=== PATIENT | male | born 1955 | race Caucasian/White ===

== ENCOUNTER 2019-10-03 14:57 | Emergency (ER) | payer OTHER ==
[~2019-10-03] VITALS: Ht 190.5 cm; Wt 104.5 kg
--- NOTE | 2019-10-03 15:49 | PHYS DOC ---
Past Medical History Past Medical History: Diabetes-Type II, High Cholesterol, Hypertension Past Surgical History: Other Additional Past Surgical Histo: RT ROTATOR CUFF Smoking Status: Never Smoker Alcohol Use: None General Adult EDM: Chief Complaint: GENERALIZED BODY ACHES HPI: HPI: The history was obtained from the patient. Patient is a 64-year-old male with PMH sop-cuhxdxh-cyatjrsum diabetes, hypertension, hyperlipidemia who presents with a chief complaint of generalized also aches. Patient states on September 18 he began having generalized muscle aches. He states he was tested as an outpatient for yoder virus. He states he was told that he was negative. He states since then he has had intermittent generalized muscle aches. He states it involves his neck and all of his extremities. 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 Denies any known exposure to coronavirus. Denies any fevers. He denies any chest pain or shortness of breath. He denies any cough or sore throat. He denies abdominal pain. Denies any urinary symptoms including dysuria or polyuria. He states that he does take metformin daily. He states he has not checked his blood sugar approximately a month. He has noted that he takes 40 mg of Lipitor daily. He states he has been on this dose for years and there are no recent changes to that dose. He denies any syncope. He denies any feelings of irregular rapid heartbeats. He states that he does have a family physician who encouraged him to report to emergency department. He states that he has been looking up the symptoms online and is particular concern regarding fibromyalgia or lupus. Denies any rashes. He states he has not been overexerting himself at work. He denies any symptoms outside of his generalized muscle aches. No other complaints. Review of Systems: Review of Systems: Constitutional: Denies fever or chills. [] Eyes: Denies change in visual acuity. [] HENT: Denies nasal congestion or sore throat. [] Respiratory: Denies cough or shortness of breath. [] Cardiovascular: Denies chest pain or edema. [] GI: Denies abdominal pain, nausea, vomiting, bloody stools or diarrhea. [] : Denies dysuria. [] Musculoskeletal: Positive for muscle aches Integument: Denies rash. [] Neurologic: Denies headache, focal weakness or sensory changes. [] Endocrine: Denies polyuria or polydipsia. [] Lymphatic: Denies swollen glands. [] Psychiatric: Denies depression or anxiety. [] Heart Score: Risk Factors: Risk Factors: DM, Current or recent (<one month) smoker, HTN, HLP, family history of CAD, obesity. Risk Scores: Score 0 - 3: 2.5% MACE over next 6 weeks - Discharge Home Score 4 - 6: 20.3% MACE over next 6 weeks - Admit for Clinical Observation Score 7 - 10: 72.7% MACE over next 6 weeks - Early Invasive Strategies Physical Exam: PE: Constitutional: Well developed, well nourished, no acute distress, non-toxic appearance. [] HENT: Normocephalic, atraumatic, bilateral external ears normal, oropharynx moist, no oral exudates, nose normal. [] Eyes: PERRLA, EOMI, conjunctiva normal, no discharge. [] Neck: Normal range of motion, no tenderness, supple, no stridor. [] Cardiovascular:Heart rate regular rhythm, no murmur [] Lungs & Thorax: Bilateral breath sounds clear to auscultation [] Abdomen: soft, no tenderness, no masses, no pulsatile masses. [] Skin: Warm, dry, no erythema, no rash. [] Back: No tenderness, no CVA tenderness. [] Extremities: No tenderness, no cyanosis, no clubbing, ROM intact, no edema. [] Neurologic: Alert and oriented X 3, normal motor function, normal sensory function, no focal deficits noted. [] Psychologic: Affect normal, judgement normal, mood normal. [] Current Patient Data: Labs: Laboratory Tests Test 10/03/19 15:50 White Blood Count 9.1 x10^3/uL Red Blood Count 4.25 x10^6/uL Hemoglobin 13.8 g/dL Hematocrit 40.5 % Mean Corpuscular Volume 95 fL Mean Corpuscular Hemoglobin 33 pg Mean Corpuscular Hemoglobin Concent 34 g/dL Red Cell Distribution Width 13.7 % Platelet Count 308 x10^3/uL Neutrophils (%) (Auto) 64 % Lymphocytes (%) (Auto) 24 % Monocytes (%) (Auto) 11 % Eosinophils (%) (Auto) 1 % Basophils (%) (Auto) 1 % Neutrophils # (Auto) 5.8 x10^3/uL Lymphocytes # (Auto) 2.2 x10^3/uL Monocytes # (Auto) 1.0 x10^3/uL Eosinophils # (Auto) 0.1 x10^3/uL Basophils # (Auto) 0.1 x10^3/uL Sodium Level 135 mmol/L Potassium Level 4.3 mmol/L Chloride Level 99 mmol/L Carbon Dioxide Level 28 mmol/L Anion Gap 8 Blood Urea Nitrogen 24 mg/dL Creatinine 1.2 mg/dL Estimated GFR (Cockcroft-Gault) 61.0 Glucose Level 253 mg/dL Calcium Level 9.8 mg/dL Creatine Kinase 38 U/L Vital Signs: Vital Signs Date Time Temp Pulse Resp B/P (MAP) Pulse Ox O2 Delivery O2 Flow Rate FiO2 10/03/19 15:21 97.8 98 16 142/76 (98) Room Air 97.8 EKG: EKG: EKG consistent with normal sinus rhythm. Ventricular rate of 85 bpm. Left axis noted. Intervals normal. No acute ischemic changes appreciated. No previous for comparison. Radiology/Procedures: Radiology/Procedures: [][facility] [address] [place] [address] IMAGING REPORT Signed PATIENT: SONJA VILLARREAL ACCOUNT: [id number] : 1955 LOCATION: ER AGE: 64 SEX: M EXAM STATUS: REG ER ORD. PHYSICIAN: GINGER GONG DO REASON: generalized weakness PROCEDURE: CHEST PA & LATERAL Exam: Chest 2 views INDICATION: Generalized weakness TECHNIQUE: Frontal and lateral views the chest Comparisons: None FINDINGS: The cardiomediastinal silhouette and pulmonary vessels are within normal limits. The lung and pleural spaces are clear. IMPRESSION: No acute cardiopulmonary process. Electronically signed by: Rebekah Olson MD (10/03/2019 4:06 PM) [id number] DICTATED and SIGNED BY: REBEKAH OLSON MD DATE: 10/03/19 1606 Course & Med Decision Making: Course & Med Decision Making Pertinent Labs and Imaging studies reviewed. (See chart for details) Patient is a well-appearing 64-year-old male who presents with chief complaint of intermittent diffuse body aches over the past few weeks. There is vital signs unremarkable. Overall I do have low suspicion for ACS. Initial EKG shows no acute ischemic changes. Basic labs were obtained and were grossly unremarkable. CPK without abnormality. Patient is declining repeat coronavirus testing today. He was instructed to self quarantine given his symptoms. Overall suspicion for emergent etiology explaining patient's symptoms. This could be related to statin induced myopathy. I do feel the patient's appropriate for outpatient management. He was instructed to follow-up with his primary care physician in the next 2 to 3 days. Patient is agreeable to this plan. Repeat vital signs been stable. Return precautions discussed and understood. Stable for discharge home. Dragon Disclaimer: Dragon Disclaimer: This electronic medical record was generated, in whole or in part, using a voice recognition dictation system. Departure Departure Disposition: 01 HOME, SELF-CARE Condition: GOOD Referrals: WILLIAN JAY MD (PCP) Patient Instructions: Muscle Cramps Additional Instructions: Please follow-up with your PCP in the next 2 to 3 days. Scripts Cyclobenzaprine Hcl (CYCLOBENZAPRINE HCL) 5 Mg Tablet 5 MG PO PRN TID PRN for MUSCLE PAIN, #15 TAB Prov: GINGER GONG DO 10/03/19 Justicifation of Admission Dx: Justifications for Admission: Justification of Admission Dx: N/A GINGER GONG DO Oct 03, 2019 15:49
[2019-10-03 16:08] LABS: CALCIUM 9.8 mg/dL (8.5-10.1); CREATININE 1.2 mg/dL (0.7-1.3); POTASSIUM 4.3 mmol/L (3.5-5.1)
--- NOTE | 2019-10-03 16:09 | RAD ---
Exam: Chest 2 views INDICATION: Generalized weakness TECHNIQUE: Frontal and lateral views the chest Comparisons: None FINDINGS: The cardiomediastinal silhouette and pulmonary vessels are within normal limits. The lung and pleural spaces are clear. IMPRESSION: No acute cardiopulmonary process. Electronically signed by: Rebekah Romero MD (10/03/2019 4:06 PM) [id number]
[2019-10-03 16:17] LABS: BASO # 0.1 x10^3/uL (0.0-0.2); BASO % 1 % (0-3); EOS # 0.1 x10^3/uL (0.0-0.7); EOS % 1 % (0-3); HEMATOCRIT 40.5 % (39.0-53.0); HEMOGLOBIN 13.8 g/dL (13.0-17.5); LYMPH # 2.2 x10^3/uL (1.0-4.8); LYMPH % 24 % (24-48); MEAN CORPUSCULAR HEMOGLOBIN 33 pg (25-35); MEAN CORPUSCULAR HGB CONC 34 g/dL (31-37); MEAN CORPUSCULAR VOLUME 95 fL (79-100); MONO % 11 % (0-9); NEUT # 5.8 x10^3/uL (1.8-7.7); NEUT % 64 % (31-73); PLATELET COUNT 308 x10^3/uL (140-400); RED BLOOD COUNT 4.25 x10^6/uL (4.30-5.70); RED CELL DISTRIBUTION WIDTH 13.7 % (11.5-14.5); WHITE BLOOD COUNT 9.1 x10^3/uL (4.0-11.0)
[2019-10-03 17:06] VITALS: BP 149/75
[2019-10-03] MEDS ORDERED: CYCL5TAB PO (17:28)
--- NOTE | 2019-10-04 03:04 | EKG ---
[facility] [address] [place] [address] Test Date: 2019-10-03 Test Time: 16:28:07 Pat Name: SONJA VILLARREAL Department: Room: Gender: M Certified Paralegal: : 1955 Requested By: GINGER GONG Order Number: [id number] Reading MD: Measurements Intervals [place] Rate: 85 P: 30 [place]: 200 QRS: -6 QRSD: 88 T: 38 QT: 344 QTc: 414 Interpretive Statements SINUS RHYTHM LEFTWARD AXIS OTHERWISE NORMAL ECG RI6.01 No previous ECG available for comparison
== END 2019-10-03 17:51 | disposition home or self-care (01) ==
LOC: ER 14:57
DX: R53.1 Weakness (principal); R52 Pain, unspecified; E11.9 Type 2 diabetes mellitus without complications; E78.00 Pure hypercholesterolemia, unspecified; I10 Essential (primary) hypertension; Z98.890 Other specified postprocedural states
CPT/HCPCS: 36415; 71046; 80048; 82550; 85025; 93005; 99285

== ENCOUNTER 2021-06-21 06:06 | Day surgery (SDC) | payer MEDICARE ==
[~2021-06-21] VITALS: Ht 188 cm; Wt 131.0 kg
[~2021-06-21 06:06] MED LIST: ALBU2.5V8 INH; ALLO300T PO; ATOR40TA59 PO; CANA100T PO; CETI10TA74 PO; CHOL5000 PO; CYCL5TAB PO; DICL75TA PO; FLUT9.9S NS; HYDR-2145 PO; HYDR12.575 PO; HYDROmorphone 2 MG/ML INJ. IVP PRN; IV RINGERS,LACTATED 1000ML 1,000 ML IV SCH; METF10007 PO; MORPHINE SULFATE 2 MG/ML INJ. IVP PRN; PIOG30TA41 PO; POTA10TA12 PO; PROCHLORPERAZINE 10 MG/2 ML VIAL. IVP PRN; SEMA1PEN3 SQ; ceFAZolin SODIUM 3 GM in IV DEXTROSE 5% 100ML 100 ML IV PRN; fentaNYL PF VIAL 100 MCG/2 ML VIAL IVP PRN
[2021-06-21 06:38] VITALS: BP 114/61
[2021-06-21] MEDS ORDERED: PROPOFOL 10 MG/ML (20ML) VIAL. IV ONE (06:43)
[2021-06-21] MEDS ORDERED: SUCCINYLCHOLINE 200 MG/10 ML VIAL. ONE (06:50)
[2021-06-21] MEDS ORDERED: fentaNYL PF VIAL 100 MCG/2 ML VIAL ONE (06:52)
[2021-06-21] MEDS ORDERED: INSULIN LISPRO 100 UNIT/ML 3ML VIAL for OP,RR ONLY. SQ PRN (07:00)
[2021-06-21] MEDS ORDERED: BUPIVACAINE MPF 0.25% 30 ML VIAL. ONE (07:01)
[2021-06-21] MEDS ORDERED: INSULIN LISPRO 100 UNIT/ML 3ML VIAL for OP,RR ONLY. SQ ONE (07:05)
[2021-06-21] MEDS ORDERED: ONDANSETRON PF 4 MG/2 ML VIAL. ONE (07:46)
[2021-06-21] MEDS ORDERED: DEXAMETHASONE SOD PHOS 4 MG/ML VIAL ONE (07:46)
--- NOTE | 2021-06-21 08:01 | PDOC4 ---
OPERATIVE NOTE Date: Date: Jun 21, 2021 Pre-Op Diagnosis: Dupuytren's contracture left palm trigger fingers left ring finger left middle finger Post-Op Diagnosis: Same Procedure Performed: Partial palmar fasciectomy left with trigger finger release left ring finger left middle finger Surgeon: Petr Anesthesia Type: General Blood Loss: 5 cc Specimans Obtained: Palmar fascia left Findings: See dictation Complications: None RAGHAV RITTER Jr. DO Jun 21, 2021 08:01
[2021-06-21] MEDS ORDERED: TRAM50TA PO (08:03)
--- NOTE | 2021-06-21 08:06 | DISCH ---
DISCHARGE INSTRUCTIONS Condition on Discharge Condition on Discharge: Stable Activity After Discharge Activity Instructions for Disc: Avoid exertion Bathing Instructions: Shower-keep dressing dry Lifting Instructions after Dis: No pulling or pushing Driving Instructions after Dis: Do not drive today Wound Incision Care Wound/Incision Care: Ice to area for comfort, Keep wound elevated, Change dressing Other wound/incision instructi: May change dressings postoperative day #3 Follow-Up Follow up with: 10 to 14 days RAGHAV RITTER Jr. DO Jun 21, 2021 08:05
--- NOTE | 2021-06-21 08:13 | OP ---
DATE OF SURGERY: 06/21/2021 PREOPERATIVE DIAGNOSIS: Dupuytren's contracture with trigger finger, left middle and left ring fingers. POSTOPERATIVE DIAGNOSIS: Dupuytren's contracture with trigger finger, left middle and left ring fingers. PROCEDURE: Partial palmar fasciectomy with release A1 kory, left ring finger and left middle finger. SURGEON: Malcolm Humphreys Jr, DO REAL ESTATE OFFICE MANAGER: Jim Parker. ANESTHESIA: General. COMPLICATIONS: None. ESTIMATED BLOOD LOSS: 5 mL DESCRIPTION OF PROCEDURE: The patient was taken to the operative suite, given a general anesthetic. Left upper extremity was then prepped and draped in sterile fashion. After exsanguination, tourniquet was inflated. An incision was made directly over the area of the palmar fascial defect in regard to the contracture of the palmar fascia. The band was easily identified. This was dissected out and the underlying tendons and neurovascular structures looked completely intact at this point and that portion of the palmar fascia was removed in its entirety. A1 kory was then identified and released. Tendons underlying were noted to be intact and completely released at this point. Therefore, this was thoroughly irrigated. Bovie knife was used on the undersurface flap, especially radial. This was reapproximated in an interrupted fashion using 3-0 nylon. Incision was made through skin and subcutaneous tissues directly over the area of the A1 kory of the ring finger. Following this, this was taken down to identify the A1 kory. This was fully released and the tendons again were inspected and noted to be completely intact without any problems. This was then irrigated. Wounds were reapproximated in an interrupted fashion. Sterile dressing was applied. The patient was then taken from the operative bed to the postoperative bed, taken to PACU in stable condition. NEVIN DR: Avelina TID: [id number]
[2021-06-21] MEDS ORDERED: traMADol 50 MG TABLET PO ONE (08:30)
[2021-06-21 08:45] VITALS: BP 117/67
== END 2021-06-21 09:12 | disposition home or self-care (01) ==
LOC: SURG 06:06
PROVIDERS: ATTEND Orthopaedic Surgery
DX: M72.0 Palmar fascial fibromatosis [Dupuytren] (principal); M65.332 Trigger finger, left middle finger; M65.342 Trigger finger, left ring finger; E11.9 Type 2 diabetes mellitus without complications; I10 Essential (primary) hypertension; G47.30 Sleep apnea, unspecified; M10.9 Gout, unspecified; Z79.84 Long term (current) use of oral hypoglycemic drugs; Z79.899 Other long term (current) drug therapy; Z98.890 Other specified postprocedural states; Z88.8 Allergy status to other drugs, medicaments and biological substances
CPT/HCPCS: 26040; 26055; 82962; J0330; J1100; J2405; J2704; J3010; J3490; A4657; A4930; A6402; A6452; J1815